=== PATIENT | female | born 1960 | race Caucasian/White ===

== ENCOUNTER 2021-10-29 11:00 | Observation (INO) | payer MEDICARE ==
[~2021-10-29] VITALS: Ht 154.9 cm; Wt 65.8 kg
[2021-10-29 12:51] LABS: HEMOGLOBIN 14.2 gm/dl (12.3-15.3); RED BLOOD COUNT 4.75 M/UL (4.00-5.10); WHITE BLOOD COUNT 5.5 K/UL (4.5-11.0)
[2021-10-29 13:18] LABS: BUN/CREATININE RATIO 7 (0-10)
[2021-10-29] MEDS ORDERED: FLUOXETINE HCL40 MG PO (17:38)
[2021-10-29] MEDS ORDERED: TOPIRAMATE50 MG PO (17:38)
[2021-10-29] MEDS ORDERED: HARD NAILS2500 MCG PO (17:40)
[2021-10-29] MEDS ORDERED: FISH OIL 1,0001 EAC5 PO (17:43)
[2021-10-29] MEDS ORDERED: OSTEO BI-FLEX1 EACH PO (17:43)
[2021-10-29] MEDS ORDERED: MAGNESIUM250 M1 PO (17:44)
[2021-10-29] MEDS ORDERED: RESTASIS 0.05%1 EACH OD (23:55)
[2021-10-30 02:45] LABS: HEMOGLOBIN 12.8 gm/dl (12.3-15.3); RED BLOOD COUNT 4.33 M/UL (4.00-5.10); WHITE BLOOD COUNT 5.5 K/UL (4.5-11.0)
[2021-10-30 03:20] LABS: BUN/CREATININE RATIO 16 (0-10)
[2021-10-31] MEDS ORDERED: INDERAL TAB 1010 MG PO (18:22)
[2021-10-31] MEDS ORDERED: ATORVASTATIN CA20 MG PO (18:22)
[2021-10-31] MEDS ORDERED: ASPIRIN EC81 MG PO (18:22)
== END 2021-10-31 19:46 | disposition home or self-care (01) ==
LOC: ER1 11:00 → M/S 15:57 → CDU 15:57 → M/S 23:23
PROVIDERS: Physician Assistant; ADMIT Internal Medicine
DX: R20.2 Paresthesia of skin (principal); Z20.822 Contact with and (suspected) exposure to COVID-19; M45.9 Ankylosing spondylitis of unspecified sites in spine; M06.9 Rheumatoid arthritis, unspecified; M32.9 Systemic lupus erythematosus, unspecified; E78.5 Hyperlipidemia, unspecified; R51.9 Headache, unspecified; G89.29 Other chronic pain; M54.9 Dorsalgia, unspecified; Z79.899 Other long term (current) drug therapy; Z87.891 Personal history of nicotine dependence; Z88.0 Allergy status to penicillin; Z88.1 Allergy status to other antibiotic agents; Z88.8 Allergy status to other drugs, medicaments and biological substances
CPT/HCPCS: ECHO; 36415; 70450; 70496; 70498; 71045; 72040; 80048; 80053; 82550; 82553; 83735; 84484; 85025; 85652; 93005; 93306; 96374; 96375; 97161; 97165; 99285; G0378; J1100; J1200; J1885; J2765; Q9967; U0002